=== PATIENT | male | born 1990 | race Hispanic/Latino ===

== ENCOUNTER 2017-01-24 14:07 | Inpatient (IN) | payer OTHER ==
--- NOTE | 2017-01-24 14:21 | Emergency Department Report ---
Chief Complaint: Extremity Injury, Upper Stated Complaint: RT HAND PAIN Time Seen by Provider: 01/24/17 14:10 - HPI History of Present Illness: PT c/o R hand pain, gradual onset last night. PT states he was laying in his bed when the pain started. PT denies injury or trauma. PT states he is extremely thirsty and after he drinks water, he vomits. When questioned specifically about IVDA, pt state he did inject heroin into his R hand 1-2 days ago. PT unsure on date. - ROS Review of Systems: + n/v - abd pain + r hand pain - Exam Physical Exam: PT anxious. R hand with localized erythema abd soft and not tender. MSE screening note: Focused history and physical exam performed. Due to findings the following was ordered: labs ED Disposition for MSE Condition: Stable
[2017-01-24 14:54] LABS: Basophils % (Auto) 0.8 % (0.0-1.8); Hematocrit 44.4 % (35.5-45.6); Hemoglobin 14.8 gm/dl (11.8-15.2); Mean Corpuscular HGB Conc 33 % (32-34); Mean Corpuscular Hemoglobin 28 pg (28-32); Mean Corpuscular Volume 83 fl (84-94); Platelet Count 223 K/mm3 (140-440); Red Blood Count 5.34 M/mm3 (3.65-5.03); Red Cell Distribution Width 13.3 % (13.2-15.2); White Blood Count 15.1 K/mm3 (4.5-11.0)
[2017-01-24 15:04] LABS: Albumin 4.5 g/dL (3.9-5); Albumin/Globulin Ratio 1.5 %; BUN/Creatinine Ratio 11.73; Calcium 9.4 mg/dL (8.4-10.2); Chloride 88.3 mmol/L (98-107); Potassium 4.7 mmol/L (3.6-5.0); Total Protein 7.5 g/dL (6.3-8.2)
--- NOTE | 2017-01-24 15:47 | XRay Report ---
Right hand 3 views: History: Pain. Findings: No bony or articular abnormality. No fracture or dislocation. No periosteal reaction. Impression: Essentially negative right hand.
[2017-01-24 18:48] LABS: Urine Drugs of Abuse Note Disclamer
[2017-01-24 18:58] LABS: Bilirubin,Urine NEG (Negative); Blood,Urine NEG (Negative); Ketones,Urine 20 mg/dL (Negative); Leukocyte Esterase,Urine SM (Negative); Mucus,Urine 3+ /HPF; Nitrite,Urine NEG (Negative); Urobilinogen,Urine < 2.0 mg/dL (<2.0)
[2017-01-25] MEDS ORDERED: NACL 0.9% 1000 ML 1,000 ML IV ONE (01:07)
[2017-01-25] MEDS ORDERED: VANCOMYCIN/NS 1 GM/250 ML 1 GM/250 ML BAG IV ONE (01:21)
--- NOTE | 2017-01-25 01:43 | Emergency Department Report ---
ED Upper Extremity Inj HPI - General Chief Complaint: Extremity Injury, Upper Stated Complaint: RT HAND PAIN Time Seen by Provider: 01/24/17 14:10 Source: patient Mode of arrival: Ambulatory Limitations: No Limitations - History of Present Illness Initial Comments: 26-year-old male with past medical history of polysubstance abuse presents to the hospital complains of right arm pain and swelling. No trauma reported. Patient admits to using IV heroin in this area prior to swelling and pain onset. Symptoms present for the past 2 days. Patient denies fever. He is right-hand dominant. Tetanus status is up-to-date. Pain is constant rated moderate to severe in intensity, worse palpation and movement. No alleviating factors. - Related Data Allergies Allergy/AdvReac Type Severity Reaction Status Date / Time No Known Allergies Allergy Verified 01/24/17 14:22 ED Review of Systems ROS: Stated complaint: RT HAND PAIN Other details as noted in HPI Comment: All other systems reviewed and negative Other: Constitutional: No fevers chills Eyes: No eye pain visual changes ENT: No ear pain or throat pain Neck: Denies pain Respiratory: Denies cough wheezing shortness of breath Cardiovascular: Denies chest pain, palpitations, syncope GI: Denies abdominal pain, nausea, vomiting, diarrhea : Denies dysuria, urinary frequency, or urgency Musculoskeletal: As per HPI Skin: As per HPI Neurologic: Denies headache, numbness, weakness Psychiatric: Denies suicidal ideation, hallucinations ED Past Medical Hx - Past Medical History Previous Medical History?: No - Surgical History Past Surgical History?: No - Social History Smoking Status: Current Every Day Smoker Substance Use Type: Heroin ED Physical Exam - General Limitations: No Limitations - Other Other exam information: General: No limitations, patient is alert in no acute distress Head exam: Atraumatic, normocephalic Eyes exam: Normal appearance ENT: Moist mucous membrane, normal oropharynx Neck exam: Normal inspection, full range of motion, no meningismus nontender Respiratory exam: Clear to auscultation bilateral, no wheezes, rales, crackles Cardiovascular: Normal rate and rhythm, normal heart sounds Abdomen: Soft, nondistended, and nontender, with normal bowel sounds, no rebound, or guarding Extremity: Full range of motion swelling to dorsum of right hands on the radial side mid hand extending upward to the distal forearm. Positive erythema, warmth , and tenderness Back: Normal Inspection, full range of motion, no tenderness Neurologic: Alert, oriented x3, cranial nerves intact, no motor or sensory deficit Psychiatric: normal affect, normal mood Skin: Warm, dry, intact ED Course Vital Signs 01/24/17 01/25/17 14:11 01:18 Temperature 98.8 F 99.3 F Pulse Rate 116 H 91 H Respiratory 20 18 Rate Blood Pressure 118/82 Blood Pressure 123/70 [Left] O2 Sat by Pulse 96 100 Oximetry - Reevaluation(s) Reevaluation #1: 01/25/17 01:47 Tachycardia improved prior to initiation of IV fluids. Patient treated with normal saline and vancomycin in the ED ED Medical Decision Making - Lab Data Result diagrams: 01/24/17 14:26 01/24/17 14:26 Lab Results 01/24/17 01/24/17 01/24/17 Range/Units 14:16 14:26 14:26 WBC 15.1 H (4.5-11.0) K/mm3 RBC 5.34 H (3.65-5.03) M/mm3 Hgb 14.8 (11.8-15.2) gm/dl Hct 44.4 (35.5-45.6) % MCV 83 L (84-94) fl MCH 28 (28-32) pg MCHC 33 (32-34) % RDW 13.3 (13.2-15.2) % Plt Count 223 (140-440) K/mm3 Lymph % (Auto) 28.6 (13.4-35.0) % [place] % (Auto) 9.5 H (0.0-7.3) % Eos % (Auto) 0.0 (0.0-4.3) % Baso % (Auto) 0.8 (0.0-1.8) % Lymph # 4.3 (1.2-5.4) K/mm3 [place] # 1.4 H (0.0-0.8) K/mm3 Eos # 0.0 (0.0-0.4) K/mm3 Baso # 0.1 (0.0-0.1) K/mm3 Seg Neutrophils % 61.1 (40.0-70.0) % Seg Neutrophils # 9.2 H (1.8-7.7) K/mm3 Sodium 130 L (137-145) mmol/L Potassium 4.7 (3.6-5.0) mmol/L Chloride 88.3 L (98-107) mmol/L Carbon Dioxide 22 (22-30) mmol/L Anion Gap 24 mmol/L BUN 27 H (9-20) mg/dL Creatinine 2.3 H (0.8-1.5) mg/dL Estimated GFR 35 ml/min BUN/Creatinine Ratio 11.73 % Glucose 76 (75-100) mg/dL POC Glucose 87 (70-105) Calcium 9.4 (8.4-10.2) mg/dL Total Bilirubin 1.00 (0.1-1.2) mg/dL AST 25 (5-40) units/L ALT 22 (7-56) units/L Alkaline Phosphatase 63 (35-129) units/L Total Creatine Kinase (55-170) units/L Total Protein 7.5 (6.3-8.2) g/dL Albumin 4.5 (3.9-5) g/dL Albumin/Globulin Ratio 1.5 % Lipase 56 (13-60) units/L Urine Color (Yellow) Urine Turbidity (Clear) Urine pH (5.0-7.0) Ur Specific [place] (1.003-1.030) Urine Protein (Negative) mg/dL Urine Glucose (UA) (Negative) mg/dL Urine Ketones (Negative) mg/dL Urine Blood (Negative) Urine Nitrite (Negative) Urine Bilirubin (Negative) Urine Urobilinogen (<2.0) mg/dL Ur Leukocyte Esterase (Negative) Urine WBC (Auto) (0.0-6.0) /HPF Urine RBC (Auto) (0.0-6.0) /HPF U Epithel Cells (Auto) (0-13.0) /HPF Hyaline Casts /LPF Urine Mucus /HPF Urine Opiates Screen Urine Methadone Screen Ur Barbiturates Screen Ur Phencyclidine Scrn Ur Amphetamines Screen U Benzodiazepines Scrn Urine Cocaine Screen U Marijuana (THC) Screen Drugs of Abuse Note 01/24/17 01/24/17 01/24/17 Range/Units 14:26 18:45 18:45 WBC (4.5-11.0) K/mm3 RBC (3.65-5.03) M/mm3 Hgb (11.8-15.2) gm/dl Hct (35.5-45.6) % MCV (84-94) fl MCH (28-32) pg MCHC (32-34) % RDW (13.2-15.2) % Plt Count (140-440) K/mm3 Lymph % (Auto) (13.4-35.0) % [place] % (Auto) (0.0-7.3) % Eos % (Auto) (0.0-4.3) % Baso % (Auto) (0.0-1.8) % Lymph # (1.2-5.4) K/mm3 [place] # (0.0-0.8) K/mm3 Eos # (0.0-0.4) K/mm3 Baso # (0.0-0.1) K/mm3 Seg Neutrophils % (40.0-70.0) % Seg Neutrophils # (1.8-7.7) K/mm3 Sodium (137-145) mmol/L Potassium (3.6-5.0) mmol/L Chloride (98-107) mmol/L Carbon Dioxide (22-30) mmol/L Anion Gap mmol/L BUN (9-20) mg/dL Creatinine (0.8-1.5) mg/dL Estimated GFR ml/min BUN/Creatinine Ratio % Glucose (75-100) mg/dL POC Glucose (70-105) Calcium (8.4-10.2) mg/dL Total Bilirubin (0.1-1.2) mg/dL AST (5-40) units/L ALT (7-56) units/L Alkaline Phosphatase (35-129) units/L Total Creatine Kinase 429 H (55-170) units/L Total Protein (6.3-8.2) g/dL Albumin (3.9-5) g/dL Albumin/Globulin Ratio % Lipase (13-60) units/L Urine Color [place] (Yellow) Urine Turbidity Slightly-cloudy (Clear) Urine pH 5.0 (5.0-7.0) Ur Specific [place] 1.025 (1.003-1.030) Urine Protein 100 mg/dl (Negative) mg/dL Urine Glucose (UA) Neg (Negative) mg/dL Urine Ketones 20 (Negative) mg/dL Urine Blood Neg (Negative) Urine Nitrite Neg (Negative) Urine Bilirubin Neg (Negative) Urine Urobilinogen < 2.0 (<2.0) mg/dL Ur Leukocyte Esterase Sm (Negative) Urine WBC (Auto) 8.0 H (0.0-6.0) /HPF Urine RBC (Auto) 5.0 (0.0-6.0) /HPF U Epithel Cells (Auto) 1.0 (0-13.0) /HPF Hyaline Casts 5 /LPF Urine Mucus 3+ /HPF Urine Opiates Screen Presumptive positive Urine Methadone Screen Presumptive negative Ur Barbiturates Screen Presumptive negative Ur Phencyclidine Scrn Presumptive negative Ur Amphetamines Screen Presumptive positive U Benzodiazepines Scrn Presumptive negative Urine Cocaine Screen Presumptive negative U Marijuana (THC) Screen Presumptive positive Drugs of Abuse Note Disclamer - Radiology Data Radiology results: report reviewed (r hand xray: unremarkable) - Medical Decision Making Patient admitted to the hospital for IV treatment/antibiotics. Patient also has renal sufficiency but no previous creatinine available for comparison. He denies a known history of renal insufficiency. - Differential Diagnosis cellulitis, abscess, osteomyelitis, fracture, contusion Critical Care Time: No Critical care attestation.: If time is entered above; I have spent that time in minutes in the direct care of this critically ill patient, excluding procedure time. ED Disposition Clinical Impression: Infection of right hand, IVDU (intravenous drug user), Heroin abuse, Amphetamine abuse, Marijuana abuse, Renal insufficiency, Hyponatremia Disposition: OP ADMIT IP TO THIS HOSP Is pt being admited?: Yes Condition: Stable Time of Disposition: 01:44 (Dr. eaton/hosp)
--- NOTE | 2017-01-25 02:04 | History and Physical Report ---
History of Present Illness Date of examination: 01/25/17 Date of admission: 01/25/17 Chief complaint: pain, redness,swelling right hand History of present illness: Aiyana 26-year-old presents with right hand pain swelling and redness for 2 days. Patient is a polysubstance abuser using injecting heroine using vitamins marijuana. He admits to injecting heroine 3 days ago. And soon after developed pain and redness and swelling of the right arm. This was becoming worse therefore came to the emergency department for further evaluation. In emergency department was diagnosed with cellulitis right arm. He has been started on IV antibiotics and will be admitted to telemetry medical surgical floor. Past History Past Medical History: other (substance abuse iv Heroin, amphetamine,marijuana) Past Surgical History: tonsillectomy Social history: single, lives with family, smoking (1 pack cigarettes a day), IV drug use (Heroin), full code, other (polysubstance abuse - Amphetamine, Marijuana) Medications and Allergies Allergies Allergy/AdvReac Type Severity Reaction Status Date / Time No Known Allergies Allergy Verified 01/24/17 14:22 Active Meds: Active Medications Sodium Chloride (Nacl 0.9% 1000 Ml) 1,000 mls @ 999 mls/hr IV BOLUS ONE Stop: 01/25/17 02:07 Last Admin: 01/25/17 01:20 Dose: 999 mls/hr Vancomycin HCl (Vancomycin/Ns 1 Gm/250 Ml) 1 gm in 250 mls @ 167.007 mls/hr IV ONCE ONE PRN Reason: Protocol Stop: 01/25/17 02:50 Last Admin: 01/25/17 01:45 Dose: 167.007 mls/hr Review of Systems All systems: negative (no fever, no chest pain, no headache, no abdominal pain, All other systems reviewed and are negative) Exam - Physical Exam Narrative exam: General appearance: In mild distress from pain, HEENT: normocephalic, atraumatic, Neck : supple, no JVD Lungs:clear to auscultation bilaterally, no crackles no wheezes Heart :S1 and S2 regular, no murmurs, no gallop Abdomen: soft, non-tender, non-distended, normal bowel sounds Extremities: Dorsum right hand, erythema, swollen, tender.no clubbing or cyanosis. Neuro : Awake, alert, oriented x 3, normal speech, no focal neurological signs - Constitutional Vitals: Temp Pulse Resp BP Pulse Ox 99.3 F 91 H 18 123/70 100 01/25/17 01:18 01/25/17 01:18 01/25/17 01:18 01/25/17 01:18 01/25/17 01:18 Results - Labs CBC & Chem 7: 01/24/17 14:26 01/24/17 14:26 Labs: Abnormal lab results 01/24/17 01/24/17 01/24/17 Range/Units 14:26 14:26 14:26 WBC 15.1 H (4.5-11.0) K/mm3 RBC 5.34 H (3.65-5.03) M/mm3 MCV 83 L (84-94) fl [place] % (Auto) 9.5 H (0.0-7.3) % [place] # 1.4 H (0.0-0.8) K/mm3 Seg Neutrophils # 9.2 H (1.8-7.7) K/mm3 Sodium 130 L (137-145) mmol/L Chloride 88.3 L (98-107) mmol/L BUN 27 H (9-20) mg/dL Creatinine 2.3 H (0.8-1.5) mg/dL Total Creatine Kinase 429 H (55-170) units/L Urine WBC (Auto) (0.0-6.0) /HPF 01/24/17 Range/Units 18:45 WBC (4.5-11.0) K/mm3 RBC (3.65-5.03) M/mm3 MCV (84-94) fl [place] % (Auto) (0.0-7.3) % [place] # (0.0-0.8) K/mm3 Seg Neutrophils # (1.8-7.7) K/mm3 Sodium (137-145) mmol/L Chloride (98-107) mmol/L BUN (9-20) mg/dL Creatinine (0.8-1.5) mg/dL Total Creatine Kinase (55-170) units/L Urine WBC (Auto) 8.0 H (0.0-6.0) /HPF Assessment and Plan Cellulitis right hand and distal forearm. This is secondary to illicit IV drug injection. Admit to medical surgical floor. Start vancomycin and Levaquin and Zosyn. We will consult orthopedic surgeon. He admits to injecting iv Heroin 3 days ago Leukocytosis. To Rule out sepsis. Start empiric 3 antibiotics and may de- escalate as clinical progress dictates. Blood cultures ordered. Acute kidney injury with creatinine of 2.3. He denies any previous history of renal failure. Start IV fluids and monitor daily BMP. Hyponatremia. Started on 0/9%NaCl. Repeat in am. DVT prophylaxis with Heparin subbcut. UTI. Levaquin Polysubstance abuse with Heroin, Amphetamine and marijuana. I discussed with him the importance of quitting. Consult case management. iv drug user Full CODE STATUS
[2017-01-25] MEDS ORDERED: ZOFRAN IV PRN (02:11)
[2017-01-25] MEDS ORDERED: DULCOLAX PR PRN (02:11)
[2017-01-25] MEDS ORDERED: TYLENOL PO PRN (02:11)
[2017-01-25] MEDS ORDERED: ZOSYN/NS 4.5GM/100ML 4.5 GM/100 ML VIAL IV SCH (02:18)
[2017-01-25] MEDS ORDERED: LEVAQUIN 750MG/150ML 750 MG/150 ML BAG IV ONE (03:00)
[2017-01-25] MEDS: MORPHINE IV PRN ×5 (03:21→23:08)
[2017-01-25] MEDS: NACL 0.9% 1000 ML 1,000 ML IV SCH ×2 (03:23→12:15)
[2017-01-25] MEDS: ZOSYN/NS 2.25 GM/50ML 2.25 GM/50 ML BAG IV SCH ×2 (06:00→12:14)
[2017-01-25] MEDS ORDERED: VANCOMYCIN PHARMACY TO DOSE IV SCH (06:00)
[2017-01-25] MEDS ORDERED: VANCOMYCIN 2,000 MG in NACL 0.9% 500 ML 500 ML IV ONE (08:00)
--- NOTE | 2017-01-25 08:33 | Admit Criteria Form ---
Admission Criteria Documentation: CELLULITIS Clinical Indications for Admission to Inpatient Care (Place 'X' for any and all applicable criteria): Admission is indicated for ANY ONE of the following(1)(2)(3)(4)(5): [ ]I. Limb-threatening infection [ ]II. High-risk comorbid condition as indicated by ANY ONE of the following: [ ]a) Uncontrolled diabetes (eg, HbA1c greater than 10% (0.1)) [ ]b) Cirrhosis [ ]c) Neutropenia [ ]d) Asplenia [ ]e) Immunosuppression [ ]f) Symptomatic heart failure [ ]III. Failure of outpatient therapy as indicated by ALL of the following: [ ]a) Progression or no improvement after adequate trial (minimum of 48 hours, with longer period for stable lower extremity infection) [ ]b) Adequate antibiotic regimen as indicated by use of ANY ONE of the following: [ ]i) First-generation cephalosporin (e.g., cephalexin) [ ]ii) Antistaphylococcal penicillin (e.g., dicloxacillin) [ ]iii) Penicillin-allergic patient regimen (clindamycin, extended-spectrum fluoroquinolone, or doxycycline) [ ]iv) Resistant organism (eg, methicillin-resistant Staphylococcus aureus) regimen (6) [ ]c) Outpatient intravenous therapy regimen is not appropriate due to ANY ONE of the following. (7)(8)(9)(10): [ ]i) It was tried and was not successful (eg, progression of infection). [ ]ii) It is not available or cannot be arranged in a clinically appropriate time frame (e.g., the next day). [ ]iii) Clinical presentation (eg, acuity of infection, rapidity of progression, confirmed or suspected bacteremia) is judged to require ALL of the following: [ ]1) Immediate initiation of intravenous therapy ( eg, cannot wait for next day) [ ]2) Intensity of patient monitoring and observation (eg, vital sign measurement, checks for infection progression) that cannot be provided at other than inpatient level of care [ ]IV. Mental status changes [ ]V. Bacteremia [ ]. Hemodynamic instability [ ]VII. Suspected necrotizing soft tissue infection (e.g., gas in tissue)(11)( 12) [ ]VIII. Orbital infection (13)(14) [ ]IX. Associated surgical procedure (e.g., abscess drainage, debridement) not amenable to outpatient, emergency department, or observation care [ ]X. Cutaneous gangrene [ ]XI. High fever (temperature greater than 39.5 degrees C (103.1 degrees F) (oral)) not responsive to outpatient, emergency department, or observation care therapy [X]XIII. Inpatient admission required rather than observation care (Also use Cellulitis: Observation Care as appropriate) because of ANY ONE of the following : [ ]a) Periorbital or perineal infection that is severe or worsening [X]b) Severe pain requiring acute inpatient management [ ]c) IV fluid to replace significant ongoing (e.g., for over 24 hours) losses (greater than 3L/m2 per day) [ ]d) Compartment syndrome monitoring (17) [ ]e) Strict or protective (eg, laminar flow) isolation [ ]f) Urgent debridement or skin grafting [ ]g) Bone or joint debridement [ ]h) Immediate inpatient surgery [X]i) Other condition, treatment or monitoring requiring inpatient admission Extended stay beyond goal length of stay may be needed for (1)(18): [ ]a) Necrotizing soft tissue infection or fasciitis [ ]b) Gram-negative infection [ ]c) Methicillin-resistant Staphylococcal aureus (MRSA) infection [ ]d) Peripheral venous insufficiency with cellulitis [ ]e) Extensive edema [ ]f) Sepsis or continued Hemodynamic instability [ ]g) Continued high fever or mental status change [ ]h) Bacteremia [ ]i) Active serious comorbid conditions ( eg, heart failure, renal insufficiency) The original [facility] content created by [employer] has been revised. The portions of the content which have been revised are identified through the use of italic text or in bold, and [facility] has neither reviewed nor approved the modified material. All other unmodified content is copyright [facility] [employer] Please see references footnoted in the original [facility] [employer] edition 2016 Admission Criteria Met: Yes
[2017-01-25] MEDS ORDERED: VANCOMYCIN 1,250 MG in NACL 0.9% 250ML 250 ML IV ONE (09:00)
--- NOTE | 2017-01-25 11:02 | Progress Note ---
Assessment and Plan Assessment and plan: Sepsis. Present on admission. Patient needs criteria given the tachycardia, leukocytosis and diagnosis of right upper extremity cellulitis. Start sepsis pathway. Check lactic acid levels. Continue current IV antibiotics. Cellulitis right hand and distal forearm. This is secondary to illicit IV drug injection. Continue vancomycin, Levaquin and Zosyn. We will consult orthopedic surgeon. He admits to injecting iv Heroin 3 days ago Acute kidney injury with creatinine of 2.3. Etiology likely secondary to vasomotor nephropathy/dehydration and sepsis. He denies any previous history of renal failure. Start IV fluids and monitor daily BMP. Hyponatremia. Started on 0/9%NaCl. Repeat in am. DVT prophylaxis with Heparin subbcut. UTI. Levaquin Polysubstance abuse with Heroin, Amphetamine and marijuana. I discussed with him the importance of quitting. Consult case management. iv drug user Full CODE STATUS History Interval history: Patient complains of right hand and forearm pain. Hospitalist Physical - Constitutional Vitals: Temp Pulse Resp BP Pulse Ox 99.5 F 92 H 18 132/67 100 01/25/17 08:00 01/25/17 08:00 01/25/17 08:00 01/25/17 08:00 01/25/17 08:00 General appearance: Present: no acute distress, well-nourished - EENT Eyes: Present: PERRL, EOM intact ENT: hearing intact, clear oral mucosa, dentition normal - Neck Neck: Present: supple, normal ROM - Respiratory Respiratory effort: normal Respiratory: bilateral: CTA - Cardiovascular Rhythm: regular Heart Sounds: Present: S1 & S2. Absent: gallop, rub - Extremities Extremities: no ischemia Extremity abnormal: edema (right hand), erythema - Abdominal General gastrointestinal: soft, non-tender, non-distended, normal bowel sounds - Integumentary Integumentary: Present: clear, warm, dry - Neurologic Neurologic: CNII-XII intact, moves all extremities Results - Labs CBC & Chem 7: 01/24/17 14:26 01/24/17 14:26 Labs: Laboratory Last Values WBC 15.1 K/mm3 (4.5-11.0) H 01/24/17 14:26 RBC 5.34 M/mm3 (3.65-5.03) H 01/24/17 14:26 Hgb 14.8 gm/dl (11.8-15.2) 01/24/17 14:26 Hct 44.4 % (35.5-45.6) 01/24/17 14: MCV 83 fl (84-94) L 01/24/17 14:26 MCH 28 pg (28-32) 01/24/17 14:26 MCHC 33 % (32-34) 01/24/17 14:26 RDW 13.3 % (13.2-15.2) 01/24/17 14:26 Plt Count 223 K/mm3 (140-440) 01/24/17 14:26 Lymph % (Auto) 28.6 % (13.4-35.0) 01/24/17 14:26 [place] % (Auto) 9.5 % (0.0-7.3) H 01/24/17 14:26 Eos % (Auto) 0.0 % (0.0-4.3) 01/24/17 14:26 Baso % (Auto) 0.8 % (0.0-1.8) 01/24/17 14:26 Lymph # 4.3 K/mm3 (1.2-5.4) 01/24/17 14:26 [place] # 1.4 K/mm3 (0.0-0.8) H 01/24/17 14:26 Eos # 0.0 K/mm3 (0.0-0.4) 01/24/17 14:26 Baso # 0.1 K/mm3 (0.0-0.1) 01/24/17 14:26 Seg Neutrophils % 61.1 % (40.0-70.0) 01/24/17 14:26 Seg Neutrophils # 9.2 K/mm3 (1.8-7.7) H 01/24/17 14:26 Sodium 130 mmol/L (137-145) L 01/24/17 14:26 Potassium 4.7 mmol/L (3.6-5.0) 01/24/17 14:26 Chloride 88.3 mmol/L (98-107) L 01/24/17 14:26 Carbon Dioxide 22 mmol/L (22-30) 01/24/17 14:26 Anion Gap 24 mmol/L 01/24/17 14:26 BUN 27 mg/dL (9-20) H 01/24/17 14:26 Creatinine 2.3 mg/dL (0.8-1.5) H 01/24/17 14:26 Estimated GFR 35 ml/min 01/24/17 14:26 BUN/Creatinine Ratio 11.73 % 01/24/17 14:26 Glucose 76 mg/dL (75-100) 01/24/17 14:26 POC Glucose 87 (70-105) 01/24/17 14:16 Calcium 9.4 mg/dL (8.4-10.2) 01/24/17 14:26 Total Bilirubin 1.00 mg/dL (0.1-1.2) 01/24/17 14:26 AST 25 units/L (5-40) 01/24/17 14:26 ALT 22 units/L (7-56) 01/24/17 14:26 Alkaline Phosphatase 63 units/L (35-129) 01/24/17 14:26 Total Creatine Kinase 429 units/L (55-170) H 01/24/17 14:26 Total Protein 7.5 g/dL (6.3-8.2) 01/24/17 14:26 Albumin 4.5 g/dL (3.9-5) 01/24/17 14:26 Albumin/Globulin Ratio 1.5 % 01/24/17 14:26 Lipase 56 units/L (13-60) 01/24/17 14:26 Urine Color [place] (Yellow) 01/24/17 18:45 Urine Turbidity Slightly-cloudy (Clear) 01/24/17 18:45 Urine pH 5.0 (5.0-7.0) 01/24/17 18:45 Ur Specific [place] 1.025 (1.003-1.030) 01/24/17 18:45 Urine Protein 100 mg/dl mg/dL (Negative) 01/24/17 18:45 Urine Glucose (UA) Neg mg/dL (Negative) 01/24/17 18:45 Urine Ketones 20 mg/dL (Negative) 01/24/17 18:45 Urine Blood Neg (Negative) 01/24/17 18:45 Urine Nitrite Neg (Negative) 01/24/17 18:45 Urine Bilirubin Neg (Negative) 01/24/17 18:45 Urine Urobilinogen < 2.0 mg/dL (<2.0) 01/24/17 18:45 Ur Leukocyte Esterase Sm (Negative) 01/24/17 18:45 Urine WBC (Auto) 8.0 /HPF (0.0-6.0) H 01/24/17 18:45 Urine RBC (Auto) 5.0 /HPF (0.0-6.0) 01/24/17 18:45 U Epithel Cells (Auto) 1.0 /HPF (0-13.0) 01/24/17 18:45 Hyaline Casts 5 /LPF 01/24/17 18:45 Urine Mucus 3+ /HPF 01/24/17 18:45 Urine Opiates Screen Presumptive positive 01/24/17 18:45 Urine Methadone Screen Presumptive negative 01/24/17 18:45 Ur Barbiturates Screen Presumptive negative 01/24/17 18:45 Ur Phencyclidine Scrn Presumptive negative 01/24/17 18:45 Ur Amphetamines Screen Presumptive positive 01/24/17 18:45 U Benzodiazepines Scrn Presumptive negative 01/24/17 18:45 Urine Cocaine Screen Presumptive negative 01/24/17 18:45 U Marijuana (THC) Screen Presumptive positive 01/24/17 18:45 Drugs of Abuse Note Disclamer 01/24/17 18:45
[2017-01-25 13:59] LABS: Anion Gap 16 mmol/L; BUN/Creatinine Ratio 17.77; Blood Urea Nitrogen 16 mg/dL (9-20); Calcium 7.9 mg/dL (8.4-10.2); Carbon Dioxide 22 mmol/L (22-30); Chloride 96.3 mmol/L (98-107); Glucose 111 mg/dL (75-100); Potassium 3.7 mmol/L (3.6-5.0); Sodium 131 mmol/L (137-145)
--- NOTE | 2017-01-25 15:17 | Consultation ---
History of Present Illness - HPI Consult date: 01/25/17 Consult reason: joint pain History of present illness: 26-year-old presents with right hand pain swelling and redness for 2 days. Patient is a polysubstance abuser using injecting heroine using vitamins marijuana. He admits to injecting heroine 3 days ago. And soon after developed pain and redness and swelling of the right arm. This was becoming worse therefore came to the emergency department for further evaluation. In emergency department was diagnosed with cellulitis right arm. He has been started on IV antibiotics and will be admitted to telemetry medical surgical floor. Asked to evaluate patient's right hand for possible abscess formation Past History Past Medical History: other (substance abuse iv Heroin, amphetamine,marijuana) Past Surgical History: tonsillectomy Social history: single, lives with family, smoking (1 pack cigarettes a day), IV drug use (Heroin), full code, other (polysubstance abuse - Amphetamine, Marijuana) Medications and Allergies Allergies Allergy/AdvReac Type Severity Reaction Status Date / Time No Known Allergies Allergy Verified 01/24/17 14:22 Active Meds: Active Medications Acetaminophen (Tylenol) 650 mg PO Q4H PRN PRN Reason: Pain MILD(1-3)/Fever >100.5/LEOS Bisacodyl (Dulcolax) 10 mg TX QDAY PRN PRN Reason: Constipation unrelieved by MOM Sodium Chloride (Nacl 0.9% 1000 Ml) 1,000 mls @ 125 mls/hr IV DIRECT AMELIE Last Admin: 01/25/17 12:15 Dose: 125 mls/hr Levofloxacin/Dextrose (Levaquin 500mg/100ml) 500 mg in 100 mls @ 100 mls/hr IV Q24HR AMELIE Vancomycin HCl 1,250 mg/ (Sodium Chloride) 275 mls @ 166.667 mls/hr IV Q8HR AMELIE Piperacillin Sod/Tazobactam Sod (Zosyn/Ns 4.5gm/100ml) 4.5 gm in 100 mls @ 200 mls/hr IV Q8HR AMELIE Morphine Sulfate (Morphine) 2 mg IV Q4H PRN PRN Reason: Pain, Moderate (4-6) Last Admin: 01/25/17 12:14 Dose: 2 mg Ondansetron HCl (Zofran) 4 mg IV Q6H PRN PRN Reason: Nausea And Vomiting Vancomycin HCl (Vancomycin Pharmacy To Dose) 1 each IV PKCONSULT AMELIE PRN Reason: Protocol Physical Examination - Physical exam Narrative exam: On physical examination the right hand and the patient was noted to have moderate swelling with redness was tender to palpation there were no fluctuance or drainage noted from the right upper extremity Assessment and Plan Assessment - cellulitis right hand and forearm Recommendation - continue IV antibiotics and observation
[2017-01-25 16:56] LABS: Hematocrit 38.4 % (35.5-45.6); Mean Corpuscular HGB Conc 34 % (32-34); Mean Corpuscular Hemoglobin 28 pg (28-32); Mean Corpuscular Volume 84 fl (84-94); Platelet Count 180 K/mm3 (140-440); Red Cell Distribution Width 13.6 % (13.2-15.2); White Blood Count 6.3 K/mm3 (4.5-11.0)
[2017-01-25 17:11] LABS: Anion Gap 19 mmol/L; Blood Urea Nitrogen 14 mg/dL (9-20); Calcium 8.2 mg/dL (8.4-10.2); Carbon Dioxide 19 mmol/L (22-30); Chloride 94.6 mmol/L (98-107); Glucose 91 mg/dL (75-100); Potassium 3.8 mmol/L (3.6-5.0); Sodium 129 mmol/L (137-145)
[2017-01-25] MEDS: VANCOMYCIN 1,250 MG in NACL 0.9% 250ML 250 ML IV SCH (21:34)
[2017-01-25] MEDS: ZOSYN/NS 4.5GM/100ML 4.5 GM/100 ML VIAL IV SCH (23:08)
[2017-01-26] MEDS: VANCOMYCIN 1,250 MG in NACL 0.9% 250ML 250 ML IV SCH ×3 (05:21→21:44)
[2017-01-26] MEDS: ZOSYN/NS 4.5GM/100ML 4.5 GM/100 ML VIAL IV SCH ×3 (05:22→21:44)
[2017-01-26] MEDS ORDERED: VANCOMYCIN 1,500 MG in NACL 0.9% 500 ML 500 ML IV SCH (06:00)
[2017-01-26 07:57] LABS: Hematocrit 38.9 % (35.5-45.6); Hemoglobin 13.1 gm/dl (11.8-15.2); Mean Corpuscular HGB Conc 34 % (32-34); Mean Corpuscular Hemoglobin 28 pg (28-32); Mean Corpuscular Volume 84 fl (84-94); Platelet Count 169 K/mm3 (140-440); Red Blood Count 4.65 M/mm3 (3.65-5.03); Red Cell Distribution Width 13.4 % (13.2-15.2); White Blood Count 5.9 K/mm3 (4.5-11.0)
[2017-01-26] MEDS: MORPHINE IV PRN ×4 (08:32→21:45)
[2017-01-26 09:48] LABS: Basophils % (Manual) 0 % (0.0-1.8); Blastocytes % (Manual) 0 %; RBC Morphology Normal
[2017-01-26 09:49] LABS: Diff Status Complete
[2017-01-26] MEDS ORDERED: LEVAQUIN 500MG/100ML 500 MG/100 ML BAG IV SCH (10:00)
--- NOTE | 2017-01-26 10:02 | Progress Note ---
Assessment and Plan Assessment and plan: Sepsis. Continued follow-up lactic acid levels and blood cultures. Continue IV antibiotics. Cellulitis right hand and distal forearm. This is secondary to illicit IV drug injection. Continue vancomycin, Levaquin and Zosyn. We will consult orthopedic surgeon. He admits to injecting iv Heroin 3 days ago. Check echocardiogram given his history of IV drug abuse. Acute kidney injury with creatinine of 2.3. Resolved. Etiology likely secondary to vasomotor nephropathy/dehydration and sepsis. He denies any previous history of renal failure. Continue IV fluids and monitor daily BMP. Hyponatremia. Started on 0/9%NaCl. Repeat in am. DVT prophylaxis with Heparin subcutaneous. UTI. Levaquin Polysubstance abuse with Heroin, Amphetamine and marijuana. I discussed with him the importance of quitting. Consult case management. iv drug user Full CODE STATUS History Interval history: Patient complains of right hand and forearm pain. Patient seen in echo lab Hospitalist Physical - Constitutional Vitals: Temp Pulse Resp BP Pulse Ox 99.9 F H 89 20 112/62 100 01/25/17 21:49 01/25/17 21:49 01/26/17 08:32 01/25/17 21:49 01/25/17 08:00 General appearance: Present: no acute distress, well-nourished - EENT Eyes: Present: PERRL, EOM intact ENT: hearing intact, clear oral mucosa, dentition normal - Neck Neck: Present: supple, normal ROM - Respiratory Respiratory effort: normal Respiratory: bilateral: CTA - Cardiovascular Rhythm: regular Heart Sounds: Present: S1 & S2. Absent: gallop, rub - Extremities Extremities: no ischemia, No edema, Full ROM Extremity abnormal: edema, erythema (RUE--), tenderness (RUE--forearm and dorsum of hand) - Abdominal General gastrointestinal: soft, non-tender, non-distended, normal bowel sounds - Integumentary Integumentary: Present: clear, warm, dry - Neurologic Neurologic: CNII-XII intact, moves all extremities Results - Labs CBC & Chem 7: 01/26/17 06:53 01/25/17 16:31 Labs: Laboratory Last Values WBC 5.9 K/mm3 (4.5-11.0) 01/26/17 06:53 RBC 4.65 M/mm3 (3.65-5.03) 01/26/17 06:53 Hgb 13.1 gm/dl (11.8-15.2) 01/26/17 06:53 Hct 38.9 % (35.5-45.6) 01/26/17 06:53 MCV 84 fl (84-94) 01/26/17 06:53 MCH 28 pg (28-32) 01/26/17 06:53 MCHC 34 % (32-34) 01/26/17 06:53 RDW 13.4 % (13.2-15.2) 01/26/17 06:53 Plt Count 169 K/mm3 (140-440) 01/26/17 06:53 Lymph % (Auto) 28.6 % (13.4-35.0) 01/24/17 14:26 [place] % (Auto) 9.5 % (0.0-7.3) H 01/24/17 14:26 Eos % (Auto) 0.0 % (0.0-4.3) 01/24/17 14:26 Baso % (Auto) 0.8 % (0.0-1.8) 01/24/17 14:26 Lymph # 4.3 K/mm3 (1.2-5.4) 01/24/17 14:26 [place] # 1.4 K/mm3 (0.0-0.8) H 01/24/17 14:26 Eos # 0.0 K/mm3 (0.0-0.4) 01/24/17 14:26 Baso # 0.1 K/mm3 (0.0-0.1) 01/24/17 14:26 Add Manual Diff Complete 01/26/17 06:53 Total Counted 100 01/26/17 06:53 Seg Neutrophils % 61.1 % (40.0-70.0) 01/24/17 14:26 Seg Neuts % (Manual) 56.0 % (40.0-70.0) 01/26/17 06:53 Band Neutrophils % 2.0 % 01/26/17 06:53 Lymphocytes % (Manual) 22.0 % (13.4-35.0) 01/26/17 06:53 Reactive Lymphs % (Man) 4.0 % 01/26/17 06:53 Monocytes % (Manual) 15.0 % (0.0-7.3) H 01/26/17 06:53 Eosinophils % (Manual) 1.0 % (0.0-4.3) 01/26/17 06:53 Basophils % (Manual) 0 % (0.0-1.8) 01/26/17 06:53 Metamyelocytes % 0 % 01/26/17 06:53 Myelocytes % 0 % 01/26/17 06:53 Promyelocytes % 0 % 01/26/17 06:53 Blast Cells % 0 % 01/26/17 06:53 Nucleated RBC % Not Reportable 01/26/17 06:53 Seg Neutrophils # 9.2 K/mm3 (1.8-7.7) H 01/24/17 14:26 Seg Neutrophils # Man 3.3 K/mm3 (1.8-7.7) 01/26/17 06:53 Band Neutrophils # 0.1 K/mm3 01/26/17 06:53 Lymphocytes # (Manual) 1.3 K/mm3 (1.2-5.4) 01/26/17 06:53 Abs React Lymphs (Man) 0.2 K/mm3 01/26/17 06:53 Monocytes # (Manual) 0.9 K/mm3 (0.0-0.8) H 01/26/17 06:53 Eosinophils # (Manual) 0.1 K/mm3 (0.0-0.4) 01/26/17 06:53 Basophils # (Manual) 0.0 K/mm3 (0.0-0.1) 01/26/17 06:53 Metamyelocytes # 0.0 K/mm3 01/26/17 06:53 Myelocytes # 0.0 K/mm3 01/26/17 06:53 Promyelocytes # 0.0 K/mm3 01/26/17 06:53 Blast Cells # 0.0 K/mm3 01/26/17 06:53 WBC Morphology Not Reportable 01/26/17 06:53 Hypersegmented Neuts Not Reportable 01/26/17 06:53 Hyposegmented Neuts Not Reportable 01/26/17 06:53 Hypogranular Neuts Not Reportable 01/26/17 06:53 Smudge Cells Not Reportable 01/26/17 06:53 Toxic Granulation Not Reportable 01/26/17 06:53 Toxic Vacuolation Not Reportable 01/26/17 06:53 Dohle Bodies Not Reportable 01/26/17 06:53 Pelger-Huet Anomaly Not Reportable 01/26/17 06:53 Isra Rods Not Reportable 01/26/17 06:53 Platelet Estimate Appears normal 01/26/17 06:53 Clumped Platelets Not Reportable 01/26/17 06:53 Plt Clumps, EDTA Not Reportable 01/26/17 06:53 Large Platelets Not Reportable 01/26/17 06:53 Giant Platelets Not Reportable 01/26/17 06:53 Platelet Satelliting Not Reportable 01/26/17 06:53 Plt Morphology Comment Not Reportable 01/26/17 06:53 RBC Morphology Normal 01/26/17 06:53 Dimorphic RBCs Not Reportable 01/26/17 06:53 Polychromasia Not Reportable 01/26/17 06:53 Hypochromasia Not Reportable 01/26/17 06:53 Poikilocytosis Not Reportable 01/26/17 06:53 Anisocytosis Not Reportable 01/26/17 06:53 Microcytosis Not Reportable 01/26/17 06:53 Macrocytosis Not Reportable 01/26/17 06:53 Spherocytes Not Reportable 01/26/17 06:53 Pappenheimer Bodies Not Reportable 01/26/17 06:53 Sickle Cells Not Reportable 01/26/17 06:53 Target Cells Not Reportable 01/26/17 06:53 Tear Drop Cells Not Reportable 01/26/17 06:53 Ovalocytes Not Reportable 01/26/17 06:53 Helmet Cells Not Reportable 01/26/17 06:53 [place] Bodies Not Reportable 01/26/17 06:53 [place] Rings Not Reportable 01/26/17 06:53 [place] Cells Not Reportable 01/26/17 06:53 Bite Cells Not Reportable 01/26/17 06:53 Crenated Cell Not Reportable 01/26/17 06:53 Elliptocytes Not Reportable 01/26/17 06:53 Acanthocytes (Spur) Not Reportable 01/26/17 06:53 Rouleaux Not Reportable 01/26/17 06:53 Hemoglobin C Crystals Not Reportable 01/26/17 06:53 Schistocytes Not Reportable 01/26/17 06:53 Malaria parasites Not Reportable 01/26/17 06:53 [place] Bodies Not Reportable 01/26/17 06:53 Hem Pathologist Commnt No 01/26/17 06:53 Sodium 129 mmol/L (137-145) L 01/25/17 16:31 Potassium 3.8 mmol/L (3.6-5.0) 01/25/17 16:31 Chloride 94.6 mmol/L (98-107) L 01/25/17 16:31 Carbon Dioxide 19 mmol/L (22-30) L 01/25/17 16:31 Anion Gap 19 mmol/L 01/25/17 16:31 BUN 14 mg/dL (9-20) 01/25/17 16:31 Creatinine 0.7 mg/dL (0.8-1.5) L 01/25/17 16:31 Estimated GFR > 60 ml/min 01/25/17 16:31 BUN/Creatinine Ratio 20.00 % 01/25/17 16:31 Glucose 91 mg/dL (75-100) 01/25/17 16:31 POC Glucose 87 (70-105) 01/24/17 14:16 Lactic Acid 0.80 mmol/L (0.7-2.0) 01/25/17 16:31 Calcium 8.2 mg/dL (8.4-10.2) L 01/25/17 16:31 Total Bilirubin 1.00 mg/dL (0.1-1.2) 01/24/17 14:26 AST 25 units/L (5-40) 01/24/17 14:26 ALT 22 units/L (7-56) 01/24/17 14:26 Alkaline Phosphatase 63 units/L (35-129) 01/24/17 14:26 Total Creatine Kinase 429 units/L (55-170) H 01/24/17 14:26 Total Protein 7.5 g/dL (6.3-8.2) 01/24/17 14:26 Albumin 4.5 g/dL (3.9-5) 01/24/17 14:26 Albumin/Globulin Ratio 1.5 % 01/24/17 14:26 Lipase 56 units/L (13-60) 01/24/17 14:26 Urine Color Liseth (Yellow) 01/24/17 18:45 Urine Turbidity Slightly-cloudy (Clear) 01/24/17 18:45 Urine pH 5.0 (5.0-7.0) 01/24/17 18:45 Ur Specific [place] 1.025 (1.003-1.030) 01/24/17 18:45 Urine Protein 100 mg/dl mg/dL (Negative) 01/24/17 18:45 Urine Glucose (UA) Neg mg/dL (Negative) 01/24/17 18:45 Urine Ketones 20 mg/dL (Negative) 01/24/17 18:45 Urine Blood Neg (Negative) 01/24/17 18:45 Urine Nitrite Neg (Negative) 01/24/17 18:45 Urine Bilirubin Neg (Negative) 01/24/17 18:45 Urine Urobilinogen < 2.0 mg/dL (<2.0) 01/24/17 18:45 Ur Leukocyte Esterase Sm (Negative) 01/24/17 18:45 Urine WBC (Auto) 8.0 /HPF (0.0-6.0) H 01/24/17 18:45 Urine RBC (Auto) 5.0 /HPF (0.0-6.0) 01/24/17 18:45 U Epithel Cells (Auto) 1.0 /HPF (0-13.0) 01/24/17 18:45 Hyaline Casts 5 /LPF 01/24/17 18:45 Urine Mucus 3+ /HPF 01/24/17 18:45 Urine Opiates Screen Presumptive positive 01/24/17 18:45 Urine Methadone Screen Presumptive negative 01/24/17 18:45 Ur Barbiturates Screen Presumptive negative 01/24/17 18:45 Ur Phencyclidine Scrn Presumptive negative 01/24/17 18:45 Ur Amphetamines Screen Presumptive positive 01/24/17 18:45 U Benzodiazepines Scrn Presumptive negative 01/24/17 18:45 Urine Cocaine Screen Presumptive negative 01/24/17 18:45 U Marijuana (THC) Screen Presumptive positive 01/24/17 18:45 Drugs of Abuse Note Disclamer 01/24/17 18:45
[2017-01-26] MEDS: LEVAQUIN 500MG/100ML 500 MG/100 ML BAG IV SCH (13:05)
[2017-01-26] MEDS: NACL 0.9% 1000 ML 1,000 ML IV SCH (19:33)
[2017-01-27] MEDS: MORPHINE IV PRN ×4 (04:43→19:04)
[2017-01-27] MEDS: NACL 0.9% 1000 ML 1,000 ML IV SCH (04:43)
[2017-01-27] MEDS: ZOSYN/NS 4.5GM/100ML 4.5 GM/100 ML VIAL IV SCH ×3 (05:44→22:23)
[2017-01-27 06:51] LABS: Hematocrit 40.7 % (35.5-45.6); Hemoglobin 13.6 gm/dl (11.8-15.2); Mean Corpuscular HGB Conc 34 % (32-34); Mean Corpuscular Hemoglobin 28 pg (28-32); Mean Corpuscular Volume 84 fl (84-94); Platelet Count 162 K/mm3 (140-440); Red Blood Count 4.82 M/mm3 (3.65-5.03); Red Cell Distribution Width 13.4 % (13.2-15.2); White Blood Count 5.3 K/mm3 (4.5-11.0)
[2017-01-27 07:12] LABS: Anion Gap 18 mmol/L; BUN/Creatinine Ratio 7.14; Blood Urea Nitrogen 5 mg/dL (9-20); Calcium 7.7 mg/dL (8.4-10.2); Carbon Dioxide 21 mmol/L (22-30); Chloride 102.1 mmol/L (98-107); Glucose 83 mg/dL (75-100); Potassium 3.7 mmol/L (3.6-5.0); Sodium 137 mmol/L (137-145)
[2017-01-27] MEDS: VANCOMYCIN 1,250 MG in NACL 0.9% 250ML 250 ML IV SCH ×2 (07:24→19:03)
[2017-01-27 08:13] LABS: Blastocytes % (Manual) 0 %
[2017-01-27 08:17] LABS: Basophils % (Manual) 0 % (0.0-1.8)
[2017-01-27 08:18] LABS: Diff Status Complete; RBC Morphology Normal
--- NOTE | 2017-01-27 10:54 | Progress Note ---
Assessment and Plan Assessment and plan: Sepsis. Continued follow-up lactic acid levels and blood cultures. Continue IV antibiotics. Cellulitis right hand and distal forearm. This is secondary to illicit IV drug injection. Continue vancomycin, Levaquin and Zosyn. Orthopedic surgeon following. He admits to injecting iv Heroin prior to admission. Echocardiogram reported as normal. Acute kidney injury with creatinine of 2.3. Resolved. Etiology likely secondary to vasomotor nephropathy/dehydration and sepsis. He denies any previous history of renal failure. Continue IV fluids and monitor daily BMP. Hyponatremia. Started on 0/9%NaCl. Repeat in am. DVT prophylaxis with Heparin subcutaneous. UTI. Levaquin Polysubstance abuse with Heroin, Amphetamine and marijuana. I discussed with him the importance of quitting. Consult case management. iv drug user Full CODE STATUS History Interval history: Patient complains of right hand and forearm pain. However, patient reports pain is improved. Hospitalist Physical - Constitutional Vitals: Temp Pulse Resp BP Pulse Ox 98.5 F 59 L 18 122/72 99 01/27/17 08:54 01/27/17 08:54 01/27/17 08:54 01/27/17 08:54 01/27/17 08:54 General appearance: Present: no acute distress, well-nourished - EENT Eyes: Present: PERRL, EOM intact ENT: hearing intact, clear oral mucosa, dentition normal - Neck Neck: Present: supple, normal ROM - Respiratory Respiratory effort: normal Respiratory: bilateral: CTA - Cardiovascular Rhythm: regular Heart Sounds: Present: S1 & S2. Absent: gallop, rub - Extremities Extremities: no ischemia, Full ROM Extremity abnormal: edema, erythema, tenderness (Right forearm and hand) - Abdominal General gastrointestinal: soft, non-tender, non-distended, normal bowel sounds - Integumentary Integumentary: Present: clear, warm, dry - Neurologic Neurologic: CNII-XII intact, moves all extremities Results - Labs CBC & Chem 7: 01/27/17 06:29 01/27/17 06:29 Labs: Laboratory Last Values WBC 5.3 K/mm3 (4.5-11.0) 01/27/17 06:29 RBC 4.82 M/mm3 (3.65-5.03) 01/27/17 06:29 Hgb 13.6 gm/dl (11.8-15.2) 01/27/17 06:29 Hct 40.7 % (35.5-45.6) 01/27/17 06:29 MCV 84 fl (84-94) 01/27/17 06:29 MCH 28 pg (28-32) 01/27/17 06:29 MCHC 34 % (32-34) 01/27/17 06:29 RDW 13.4 % (13.2-15.2) 01/27/17 06:29 Plt Count 162 K/mm3 (140-440) 01/27/17 06:29 Lymph % (Auto) Rehabilitation Attendant 01/27/17 06:29 [place] % (Auto) 9.5 % (0.0-7.3) H 01/24/17 14:26 Eos % (Auto) 0.0 % (0.0-4.3) 01/24/17 14:26 Baso % (Auto) 0.8 % (0.0-1.8) 01/24/17 14:26 Lymph # 4.3 K/mm3 (1.2-5.4) 01/24/17 14:26 [place] # 1.4 K/mm3 (0.0-0.8) H 01/24/17 14:26 Eos # 0.0 K/mm3 (0.0-0.4) 01/24/17 14:26 Baso # 0.1 K/mm3 (0.0-0.1) 01/24/17 14:26 Add Manual Diff Complete 01/27/17 06:29 Total Counted 100 01/27/17 06:29 Seg Neutrophils % Rehabilitation Attendant 01/27/17 06:29 Seg Neuts % (Manual) 29.0 % (40.0-70.0) L 01/27/17 06:29 Band Neutrophils % 6.0 % 01/27/17 06:29 Lymphocytes % (Manual) 41.0 % (13.4-35.0) H 01/27/17 06:29 Reactive Lymphs % (Man) 11.0 % 01/27/17 06:29 Monocytes % (Manual) 12.0 % (0.0-7.3) H 01/27/17 06:29 Eosinophils % (Manual) 1.0 % (0.0-4.3) 01/27/17 06:29 Basophils % (Manual) 0 % (0.0-1.8) 01/27/17 06:29 Metamyelocytes % 0 % 01/27/17 06:29 Myelocytes % 0 % 01/27/17 06:29 Promyelocytes % 0 % 01/27/17 06:29 Blast Cells % 0 % 01/27/17 06:29 Nucleated RBC % Not Reportable 01/27/17 06:29 Seg Neutrophils # 9.2 K/mm3 (1.8-7.7) H 01/24/17 14:26 Seg Neutrophils # Man 1.5 K/mm3 (1.8-7.7) L 01/27/17 06:29 Band Neutrophils # 0.3 K/mm3 01/27/17 06:29 Lymphocytes # (Manual) 2.2 K/mm3 (1.2-5.4) 01/27/17 06:29 Abs React Lymphs (Man) 0.6 K/mm3 01/27/17 06:29 Monocytes # (Manual) 0.6 K/mm3 (0.0-0.8) 01/27/17 06:29 Eosinophils # (Manual) 0.1 K/mm3 (0.0-0.4) 01/27/17 06:29 Basophils # (Manual) 0.0 K/mm3 (0.0-0.1) 01/27/17 06:29 Metamyelocytes # 0.0 K/mm3 01/27/17 06:29 Myelocytes # 0.0 K/mm3 01/27/17 06:29 Promyelocytes # 0.0 K/mm3 01/27/17 06:29 Blast Cells # 0.0 K/mm3 01/27/17 06:29 WBC Morphology Not Reportable 01/27/17 06:29 Hypersegmented Neuts Not Reportable 01/27/17 06:29 Hyposegmented Neuts Not Reportable 01/27/17 06:29 Hypogranular Neuts Not Reportable 01/27/17 06:29 Smudge Cells Not Reportable 01/27/17 06:29 Toxic Granulation Not Reportable 01/27/17 06:29 Toxic Vacuolation Not Reportable 01/27/17 06:29 Dohle Bodies Not Reportable 01/27/17 06:29 Pelger-Huet Anomaly Not Reportable 01/27/17 06:29 Isra Rods Not Reportable 01/27/17 06:29 Platelet Estimate Not Reportable 01/27/17 06:29 Clumped Platelets Not Reportable 01/27/17 06:29 Plt Clumps, EDTA Not Reportable 01/27/17 06:29 Large Platelets Not Reportable 01/27/17 06:29 Giant Platelets Not Reportable 01/27/17 06:29 Platelet Satelliting Not Reportable 01/27/17 06:29 Plt Morphology Comment Not Reportable 01/27/17 06:29 RBC Morphology Normal 01/27/17 06:29 Dimorphic RBCs Not Reportable 01/27/17 06:29 Polychromasia Not Reportable 01/27/17 06:29 Hypochromasia Not Reportable 01/27/17 06:29 Poikilocytosis Not Reportable 01/27/17 06:29 Anisocytosis Not Reportable 01/27/17 06:29 Microcytosis Not Reportable 01/27/17 06:29 Macrocytosis Not Reportable 01/27/17 06:29 Spherocytes Not Reportable 01/27/17 06:29 Pappenheimer Bodies Not Reportable 01/27/17 06:29 Sickle Cells Not Reportable 01/27/17 06:29 Target Cells Not Reportable 01/27/17 06:29 Tear Drop Cells Not Reportable 01/27/17 06:29 Ovalocytes Not Reportable 01/27/17 06:29 Helmet Cells Not Reportable 01/27/17 06:29 [place] Bodies Not Reportable 01/27/17 06:29 [place] Rings Not Reportable 01/27/17 06:29 [place] Cells Not Reportable 01/27/17 06:29 Bite Cells Not Reportable 01/27/17 06:29 Crenated Cell Not Reportable 01/27/17 06:29 Elliptocytes Not Reportable 01/27/17 06:29 Acanthocytes (Spur) Not Reportable 01/27/17 06:29 Rouleaux Not Reportable 01/27/17 06:29 Hemoglobin C Crystals Not Reportable 01/27/17 06:29 Schistocytes Not Reportable 01/27/17 06:29 Malaria parasites Not Reportable 01/27/17 06:29 [place] Bodies Not Reportable 01/27/17 06:29 Hem Pathologist Commnt Sent to pathology 01/27/17 06:29 Sodium 137 mmol/L (137-145) D 01/27/17 06:29 Potassium 3.7 mmol/L (3.6-5.0) 01/27/17 06:29 Chloride 102.1 mmol/L (98-107) 01/27/17 06:29 Carbon Dioxide 21 mmol/L (22-30) L 01/27/17 06:29 Anion Gap 18 mmol/L 01/27/17 06:29 BUN 5 mg/dL (9-20) L 01/27/17 06:29 Creatinine 0.7 mg/dL (0.8-1.5) L 01/27/17 06:29 Estimated GFR > 60 ml/min 01/27/17 06:29 BUN/Creatinine Ratio 7.14 % 01/27/17 06:29 Glucose 83 mg/dL (75-100) 01/27/17 06:29 POC Glucose 87 (70-105) 01/24/17 14:16 Lactic Acid 0.80 mmol/L (0.7-2.0) 01/25/17 16:31 Calcium 7.7 mg/dL (8.4-10.2) L 01/27/17 06:29 Total Bilirubin 1.00 mg/dL (0.1-1.2) 01/24/17 14:26 AST 25 units/L (5-40) 01/24/17 14:26 ALT 22 units/L (7-56) 01/24/17 14:26 Alkaline Phosphatase 63 units/L (35-129) 01/24/17 14:26 Total Creatine Kinase 429 units/L (55-170) H 01/24/17 14:26 Total Protein 7.5 g/dL (6.3-8.2) 01/24/17 14:26 Albumin 4.5 g/dL (3.9-5) 01/24/17 14:26 Albumin/Globulin Ratio 1.5 % 01/24/17 14:26 Lipase 56 units/L (13-60) 01/24/17 14:26 Urine Color [place] (Yellow) 01/24/17 18:45 Urine Turbidity Slightly-cloudy (Clear) 01/24/17 18:45 Urine pH 5.0 (5.0-7.0) 01/24/17 18:45 Ur Specific [place] 1.025 (1.003-1.030) 01/24/17 18:45 Urine Protein 100 mg/dl mg/dL (Negative) 01/24/17 18:45 Urine Glucose (UA) Neg mg/dL (Negative) 01/24/17 18:45 Urine Ketones 20 mg/dL (Negative) 01/24/17 18:45 Urine Blood Neg (Negative) 01/24/17 18:45 Urine Nitrite Neg (Negative) 01/24/17 18:45 Urine Bilirubin Neg (Negative) 01/24/17 18:45 Urine Urobilinogen < 2.0 mg/dL (<2.0) 01/24/17 18:45 Ur Leukocyte Esterase Sm (Negative) 01/24/17 18:45 Urine WBC (Auto) 8.0 /HPF (0.0-6.0) H 01/24/17 18:45 Urine RBC (Auto) 5.0 /HPF (0.0-6.0) 01/24/17 18:45 U Epithel Cells (Auto) 1.0 /HPF (0-13.0) 01/24/17 18:45 Hyaline Casts 5 /LPF 01/24/17 18:45 Urine Mucus 3+ /HPF 01/24/17 18:45 Vancomycin Trough 9.0 ug/mL (5.0-20.0) 01/27/17 06:29 Urine Opiates Screen Presumptive positive 01/24/17 18:45 Urine Methadone Screen Presumptive negative 01/24/17 18:45 Ur Barbiturates Screen Presumptive negative 01/24/17 18:45 Ur Phencyclidine Scrn Presumptive negative 01/24/17 18:45 Ur Amphetamines Screen Presumptive positive 01/24/17 18:45 U Benzodiazepines Scrn Presumptive negative 01/24/17 18:45 Urine Cocaine Screen Presumptive negative 01/24/17 18:45 U Marijuana (THC) Screen Presumptive positive 01/24/17 18:45 Drugs of Abuse Note Disclamer 01/24/17 18:45
[2017-01-27] MEDS: LEVAQUIN 500MG/100ML 500 MG/100 ML BAG IV SCH (11:05)
--- NOTE | 2017-01-27 11:27 | Progress Note ---
Assessment and Plan Assessment - cellulitis right hand and forearm Recommendation - continue IV antibiotics and observation Subjective Date of service: 01/27/17 Interval history: Less pain today than before, according to his parents who were in the room he has been doing well and his fever has subsided Objective Vital signs: Vital Signs - 12hr 01/27/17 01/27/17 01/27/17 00:00 00:54 04:43 Temperature 100.6 F H Pulse Rate 78 Respiratory 18 18 16 Rate Blood Pressure 122/69 [Left] O2 Sat by Pulse 99 Oximetry 01/27/17 08:54 Temperature 98.5 F Pulse Rate 59 L Respiratory 18 Rate Blood Pressure 122/72 [Left] O2 Sat by Pulse 99 Oximetry Narrative Exam: The right hand was examined. Noted to have much less swelling and redness to the dorsal surface - Labs CBC & BMP: 01/27/17 06:29 01/27/17 06:29 Labs: Abnormal lab results 01/27/17 01/27/17 Range/Units 06:29 06:29 Seg Neuts % (Manual) 29.0 L (40.0-70.0) % Lymphocytes % (Manual) 41.0 H (13.4-35.0) % Monocytes % (Manual) 12.0 H (0.0-7.3) % Seg Neutrophils # Man 1.5 L (1.8-7.7) K/mm3 Carbon Dioxide 21 L (22-30) mmol/L BUN 5 L (9-20) mg/dL Creatinine 0.7 L (0.8-1.5) mg/dL Calcium 7.7 L (8.4-10.2) mg/dL
[2017-01-27] MEDS: VANCOMYCIN 2,000 MG in NACL 0.9% 500 ML 500 ML IV SCH (22:23)
[2017-01-28] MEDS: MORPHINE IV PRN ×4 (00:36→22:31)
[2017-01-28 06:03] LABS: Anion Gap 17 mmol/L; BUN/Creatinine Ratio 8.75; Blood Urea Nitrogen 7 mg/dL (9-20); Calcium 7.9 mg/dL (8.4-10.2); Carbon Dioxide 22 mmol/L (22-30); Chloride 102.3 mmol/L (98-107); Glucose 85 mg/dL (75-100); Potassium 3.9 mmol/L (3.6-5.0); Sodium 137 mmol/L (137-145)
[2017-01-28] MEDS: ZOSYN/NS 4.5GM/100ML 4.5 GM/100 ML VIAL IV SCH ×3 (06:07→22:32)
[2017-01-28] MEDS: VANCOMYCIN 2,000 MG in NACL 0.9% 500 ML 500 ML IV SCH ×3 (06:07→23:49)
--- NOTE | 2017-01-28 09:11 | Progress Note ---
Assessment and Plan Assessment and plan: Sepsis. Resolving. Blood cultures are negative. Continue IV antibiotics. Cellulitis right hand and distal forearm. This is secondary to illicit IV drug injection. Continue vancomycin, Zosyn. We will de-escalate antibiotics and discontinue Levaquin. Orthopedic surgeon following. He admits to injecting iv Heroin prior to admission. Echocardiogram reported as normal. Acute kidney injury with creatinine of 2.3. Resolved. Etiology likely secondary to vasomotor nephropathy/dehydration and sepsis. He denies any previous history of renal failure. Continue IV fluids and monitor daily BMP. Hyponatremia. Started on 0/9%NaCl. Repeat in am. DVT prophylaxis with Heparin subcutaneous. UTI. Levaquin Polysubstance abuse with Heroin, Amphetamine and marijuana. I discussed with him the importance of quitting. Consult case management. iv drug user Disposition. Anticipate discharge in a.m. Full CODE STATUS History Interval history: Patient complains of right hand and forearm pain. However, patient reports pain is improved. Hospitalist Physical - Constitutional Vitals: Temp Pulse Resp BP Pulse Ox 98 F 70 16 144/80 16 L 01/28/17 08:00 01/28/17 08:00 01/28/17 08:00 01/28/17 08:00 01/28/17 08:00 General appearance: Present: no acute distress, well-nourished - EENT Eyes: Present: PERRL, EOM intact ENT: hearing intact, clear oral mucosa, dentition normal - Neck Neck: Present: supple, normal ROM - Respiratory Respiratory effort: normal Respiratory: bilateral: CTA - Cardiovascular Rhythm: regular Heart Sounds: Present: S1 & S2. Absent: gallop, rub - Extremities Extremities: no ischemia, Full ROM Extremity abnormal: edema, erythema, tenderness, other (right dorsal hand with tenderness, erythema and edema.) - Abdominal General gastrointestinal: soft, non-tender, non-distended, normal bowel sounds - Integumentary Integumentary: Present: clear, warm, dry - Neurologic Neurologic: CNII-XII intact, moves all extremities Results - Labs CBC & Chem 7: 01/27/17 06:29 01/28/17 05:29 Labs: Laboratory Last Values WBC 5.3 K/mm3 (4.5-11.0) 01/27/17 06:29 RBC 4.82 M/mm3 (3.65-5.03) 01/27/17 06:29 Hgb 13.6 gm/dl (11.8-15.2) 01/27/17 06:29 Hct 40.7 % (35.5-45.6) 01/27/17 06:29 MCV 84 fl (84-94) 01/27/17 06:29 MCH 28 pg (28-32) 01/27/17 06:29 MCHC 34 % (32-34) 01/27/17 06:29 RDW 13.4 % (13.2-15.2) 01/27/17 06:29 Plt Count 162 K/mm3 (140-440) 01/27/17 06:29 Lymph % (Auto) Acid Pump Operator 01/27/17 06:29 [place] % (Auto) 9.5 % (0.0-7.3) H 01/24/17 14:26 Eos % (Auto) 0.0 % (0.0-4.3) 01/24/17 14:26 Baso % (Auto) 0.8 % (0.0-1.8) 01/24/17 14:26 Lymph # 4.3 K/mm3 (1.2-5.4) 01/24/17 14:26 [place] # 1.4 K/mm3 (0.0-0.8) H 01/24/17 14:26 Eos # 0.0 K/mm3 (0.0-0.4) 01/24/17 14:26 Baso # 0.1 K/mm3 (0.0-0.1) 01/24/17 14:26 Add Manual Diff Complete 01/27/17 06:29 Total Counted 100 01/27/17 06:29 Seg Neutrophils % Acid Pump Operator 01/27/17 06:29 Seg Neuts % (Manual) 29.0 % (40.0-70.0) L 01/27/17 06:29 Band Neutrophils % 6.0 % 01/27/17 06:29 Lymphocytes % (Manual) 41.0 % (13.4-35.0) H 01/27/17 06:29 Reactive Lymphs % (Man) 11.0 % 01/27/17 06:29 Monocytes % (Manual) 12.0 % (0.0-7.3) H 01/27/17 06:29 Eosinophils % (Manual) 1.0 % (0.0-4.3) 01/27/17 06:29 Basophils % (Manual) 0 % (0.0-1.8) 01/27/17 06:29 Metamyelocytes % 0 % 01/27/17 06:29 Myelocytes % 0 % 01/27/17 06:29 Promyelocytes % 0 % 01/27/17 06:29 Blast Cells % 0 % 01/27/17 06:29 Nucleated RBC % Not Reportable 01/27/17 06:29 Seg Neutrophils # 9.2 K/mm3 (1.8-7.7) H 01/24/17 14:26 Seg Neutrophils # Man 1.5 K/mm3 (1.8-7.7) L 01/27/17 06:29 Band Neutrophils # 0.3 K/mm3 01/27/17 06:29 Lymphocytes # (Manual) 2.2 K/mm3 (1.2-5.4) 01/27/17 06:29 Abs React Lymphs (Man) 0.6 K/mm3 01/27/17 06:29 Monocytes # (Manual) 0.6 K/mm3 (0.0-0.8) 01/27/17 06:29 Eosinophils # (Manual) 0.1 K/mm3 (0.0-0.4) 01/27/17 06:29 Basophils # (Manual) 0.0 K/mm3 (0.0-0.1) 01/27/17 06:29 Metamyelocytes # 0.0 K/mm3 01/27/17 06:29 Myelocytes # 0.0 K/mm3 01/27/17 06:29 Promyelocytes # 0.0 K/mm3 01/27/17 06:29 Blast Cells # 0.0 K/mm3 01/27/17 06:29 Pathologist Review 01/27/17 06:29 WBC Morphology Not Reportable 01/27/17 06:29 Hypersegmented Neuts Not Reportable 01/27/17 06:29 Hyposegmented Neuts Not Reportable 01/27/17 06:29 Hypogranular Neuts Not Reportable 01/27/17 06:29 Smudge Cells Not Reportable 01/27/17 06:29 Toxic Granulation Not Reportable 01/27/17 06:29 Toxic Vacuolation Not Reportable 01/27/17 06:29 Dohle Bodies Not Reportable 01/27/17 06:29 Pelger-Huet Anomaly Not Reportable 01/27/17 06:29 Isra Rods Not Reportable 01/27/17 06:29 Platelet Estimate Not Reportable 01/27/17 06:29 Clumped Platelets Not Reportable 01/27/17 06:29 Plt Clumps, EDTA Not Reportable 01/27/17 06:29 Large Platelets Not Reportable 01/27/17 06:29 Giant Platelets Not Reportable 01/27/17 06:29 Platelet Satelliting Not Reportable 01/27/17 06:29 Plt Morphology Comment Not Reportable 01/27/17 06:29 RBC Morphology Normal 01/27/17 06:29 Dimorphic RBCs Not Reportable 01/27/17 06:29 Polychromasia Not Reportable 01/27/17 06:29 Hypochromasia Not Reportable 01/27/17 06:29 Poikilocytosis Not Reportable 01/27/17 06:29 Anisocytosis Not Reportable 01/27/17 06:29 Microcytosis Not Reportable 01/27/17 06:29 Macrocytosis Not Reportable 01/27/17 06:29 Spherocytes Not Reportable 01/27/17 06:29 Pappenheimer Bodies Not Reportable 01/27/17 06:29 Sickle Cells Not Reportable 01/27/17 06:29 Target Cells Not Reportable 01/27/17 06:29 Tear Drop Cells Not Reportable 01/27/17 06:29 Ovalocytes Not Reportable 01/27/17 06:29 Helmet Cells Not Reportable 01/27/17 06:29 Danielson-Calvin Bodies Not Reportable 01/27/17 06:29 [place] Rings Not Reportable 01/27/17 06:29 [place] Cells Not Reportable 01/27/17 06:29 Bite Cells Not Reportable 01/27/17 06:29 Crenated Cell Not Reportable 01/27/17 06:29 Elliptocytes Not Reportable 01/27/17 06:29 Acanthocytes (Spur) Not Reportable 01/27/17 06:29 Rouleaux Not Reportable 01/27/17 06:29 Hemoglobin C Crystals Not Reportable 01/27/17 06:29 Schistocytes Not Reportable 01/27/17 06:29 Malaria parasites Not Reportable 01/27/17 06:29 [place] Bodies Not Reportable 01/27/17 06:29 Hem Pathologist Commnt Sent to pathology 01/27/17 06:29 Sodium 137 mmol/L (137-145) D 01/27/17 06:29 Potassium 3.7 mmol/L (3.6-5.0) 01/27/17 06:29 Chloride 102.1 mmol/L (98-107) 01/27/17 06:29 Carbon Dioxide 22 mmol/L (22-30) 01/28/17 05:29 Anion Gap 18 mmol/L 01/27/17 06:29 BUN 7 mg/dL (9-20) L 01/28/17 05:29 Creatinine 0.8 mg/dL (0.8-1.5) 01/28/17 05:29 Estimated GFR > 60 ml/min 01/28/17 05:29 BUN/Creatinine Ratio 8.75 % 01/28/17 05:29 Glucose 85 mg/dL (75-100) 01/28/17 05:29 POC Glucose 87 (70-105) 01/24/17 14:16 Lactic Acid 0.80 mmol/L (0.7-2.0) 01/25/17 16:31 Calcium 7.9 mg/dL (8.4-10.2) L 01/28/17 05:29 Total Bilirubin 1.00 mg/dL (0.1-1.2) 01/24/17 14:26 AST 25 units/L (5-40) 01/24/17 14:26 ALT 22 units/L (7-56) 01/24/17 14:26 Alkaline Phosphatase 63 units/L (35-129) 01/24/17 14:26 Total Creatine Kinase 429 units/L (55-170) H 01/24/17 14:26 Total Protein 7.5 g/dL (6.3-8.2) 01/24/17 14:26 Albumin 4.5 g/dL (3.9-5) 01/24/17 14:26 Albumin/Globulin Ratio 1.5 % 01/24/17 14:26 Lipase 56 units/L (13-60) 01/24/17 14:26 Urine Color [place] (Yellow) 01/24/17 18:45 Urine Turbidity Slightly-cloudy (Clear) 01/24/17 18:45 Urine pH 5.0 (5.0-7.0) 01/24/17 18:45 Ur Specific [place] 1.025 (1.003-1.030) 01/24/17 18:45 Urine Protein 100 mg/dl mg/dL (Negative) 01/24/17 18:45 Urine Glucose (UA) Neg mg/dL (Negative) 01/24/17 18:45 Urine Ketones 20 mg/dL (Negative) 01/24/17 18:45 Urine Blood Neg (Negative) 01/24/17 18:45 Urine Nitrite Neg (Negative) 01/24/17 18:45 Urine Bilirubin Neg (Negative) 01/24/17 18:45 Urine Urobilinogen < 2.0 mg/dL (<2.0) 01/24/17 18:45 Ur Leukocyte Esterase Sm (Negative) 01/24/17 18:45 Urine WBC (Auto) 8.0 /HPF (0.0-6.0) H 01/24/17 18:45 Urine RBC (Auto) 5.0 /HPF (0.0-6.0) 01/24/17 18:45 U Epithel Cells (Auto) 1.0 /HPF (0-13.0) 01/24/17 18:45 Hyaline Casts 5 /LPF 01/24/17 18:45 Urine Mucus 3+ /HPF 01/24/17 18:45 Vancomycin Trough 9.0 ug/mL (5.0-20.0) 01/27/17 06:29 Urine Opiates Screen Presumptive positive 01/24/17 18:45 Urine Methadone Screen Presumptive negative 01/24/17 18:45 Ur Barbiturates Screen Presumptive negative 01/24/17 18:45 Ur Phencyclidine Scrn Presumptive negative 01/24/17 18:45 Ur Amphetamines Screen Presumptive positive 01/24/17 18:45 U Benzodiazepines Scrn Presumptive negative 01/24/17 18:45 Urine Cocaine Screen Presumptive negative 01/24/17 18:45 U Marijuana (THC) Screen Presumptive positive 01/24/17 18:45 Drugs of Abuse Note Disclamer 01/24/17 18:45
[2017-01-28] MEDS: LEVAQUIN 500MG/100ML 500 MG/100 ML BAG IV SCH (11:15)
[2017-01-28] MEDS: NACL 0.9% 1000 ML 1,000 ML IV SCH (14:49)
[2017-01-29] MEDS: ZOSYN/NS 4.5GM/100ML 4.5 GM/100 ML VIAL IV SCH ×2 (05:27→14:41)
[2017-01-29] MEDS: NACL 0.9% 1000 ML 1,000 ML IV SCH ×2 (05:29→14:42)
[2017-01-29] MEDS: MORPHINE IV PRN ×3 (05:29→14:39)
[2017-01-29] MEDS: VANCOMYCIN 2,000 MG in NACL 0.9% 500 ML 500 ML IV SCH (06:31)
[2017-01-29] MEDS: LEVAQUIN 500MG/100ML 500 MG/100 ML BAG IV SCH (10:00)
[2017-01-29 11:50] LABS: Anion Gap 17 mmol/L; Blood Urea Nitrogen 5 mg/dL (9-20); Carbon Dioxide 23 mmol/L (22-30); Chloride 104.5 mmol/L (98-107); Glucose 95 mg/dL (75-100); Potassium 3.8 mmol/L (3.6-5.0); Sodium 141 mmol/L (137-145)
[2017-01-29 12:03] LABS: Hematocrit 39.5 % (35.5-45.6); Hemoglobin 13.2 gm/dl (11.8-15.2); Mean Corpuscular HGB Conc 34 % (32-34); Mean Corpuscular Hemoglobin 28 pg (28-32); Mean Corpuscular Volume 84 fl (84-94); Platelet Count 171 K/mm3 (140-440); Red Cell Distribution Width 13.3 % (13.2-15.2); White Blood Count 6.6 K/mm3 (4.5-11.0)
[2017-01-29 16:28] LABS: Basophils % (Manual) 0 % (0.0-1.8)
[2017-01-29 16:34] LABS: Diff Status Complete; Ovalocytes Few; Platelet Estimate Consistent w Auto
[2017-01-29 16:53] VITALS: BP 128/82
--- NOTE | 2017-01-29 18:42 | Progress Note ---
Subjective Date of service: 01/29/17 Objective - Constitutional Vitals: Vital Signs - 12hr 01/29/17 01/29/17 08:00 16:52 Temperature 98.7 F 98.1 F Pulse Rate [ 64 56 L Left Radial] Respiratory 16 18 Rate Blood Pressure 122/64 128/82 [Left Radial Artery] O2 Sat by Pulse 98 98 Oximetry General appearance: Present: no acute distress, well-nourished - EENT Eyes: PERRL, EOM intact ENT: hearing intact, clear oral mucosa Ears: bilateral: normal - Neck Neck: supple, normal ROM - Respiratory Respiratory effort: normal Respiratory: bilateral: CTA - Breasts Breasts: normal - Cardiovascular Rhythm: regular Heart Sounds: Present: S1 & S2. Absent: gallop, rub Extremities: pulses intact, No edema, normal color, Full ROM - Gastrointestinal General gastrointestinal: Present: soft, non-tender, non-distended, normal bowel sounds - Genitourinary Male genitourinary: normal - Integumentary Integumentary: clear, warm, dry - Musculoskeletal Musculoskeletal: 1, strength equal bilaterally - Neurologic Neurologic: moves all extremities - Psychiatric Psychiatric: memory intact, appropriate mood/affect, intact judgment & insight - Labs CBC & Chem 7: 01/29/17 11:07 01/29/17 11:07 Labs: Abnormal lab results 01/29/17 01/29/17 Range/Units 11:07 11:07 Seg Neuts % (Manual) 10.0 L (40.0-70.0) % Lymphocytes % (Manual) 70.0 H (13.4-35.0) % Seg Neutrophils # Man 0.7 L (1.8-7.7) K/mm3 BUN 5 L (9-20) mg/dL Calcium 8.0 L (8.4-10.2) mg/dL
--- NOTE | 2017-01-29 19:06 | Discharge Summary ---
Providers - Providers Date of Admission: 01/25/17 02:11 Date of discharge: 01/29/17 Attending physician: LILIAN BARRIOS 01/25/17 07:00 Consult to Physician [CONS] Routine Consulting Provider: MEENU GABRIEL Reason For Exam: Cellulitis right hand Place consult to:: dr. agbriel Notified:: cell Phone number called:: [phone] Was contact made?: No Time called:: 08:14 Comment:: left message Primary care physician: [employer]ER Hospitalization Condition: Good Procedures: 20 minutes Hospital course: See Discharge summary in reports Disposition: DC-01 TO HOME OR SELFCARE Core Measure Documentation - Palliative Care Palliative Care/ Comfort Measures: Not Applicable - Core Measures Any of the following diagnoses?: none Exam - Constitutional Vitals: Temp Pulse Resp BP Pulse Ox 98.1 F 56 L 18 128/82 98 01/29/17 16:52 01/29/17 16:52 01/29/17 16:52 01/29/17 16:52 01/29/17 16:52 General appearance: Present: no acute distress, well-nourished - EENT Eyes: Present: PERRL ENT: hearing intact, clear oral mucosa - Neck Neck: Present: supple, normal ROM - Respiratory Respiratory effort: normal Respiratory: bilateral: CTA - Cardiovascular Heart Sounds: Present: S1 & S2. Absent: rub, click - Extremities Extremities: pulses symmetrical, No edema Peripheral Pulses: within normal limits - Abdominal General gastrointestinal: Present: soft, non-tender, non-distended, normal bowel sounds Male genitourinary: Present: normal - Integumentary Integumentary: Present: clear, warm, dry - Musculoskeletal Musculoskeletal: gait normal, strength equal bilaterally - Psychiatric Psychiatric: appropriate mood/affect, intact judgment & insight - Neurologic Neurologic: CNII-XII intact, moves all extremities Plan Activity: no restrictions Diet: regular Follow up with: PRIMARY CARE, [Primary Care Provider] - 3-5 Days
[2017-01-30] MEDS ORDERED: VANCOMYCIN 2,000 MG in NACL 0.9% 500 ML 500 ML IV SCH (07:00)
== END 2017-01-29 20:10 | disposition home or self-care (01) | DRG 871 ==
LOC: ED 14:07 → 3A 01-25 02:11
PROVIDERS: ADMIT Internal Medicine; ATTEND Hospitalist
DX: A41.9 Sepsis, unspecified organism (principal); N17.0 Acute kidney failure with tubular necrosis; L03.113 Cellulitis of right upper limb; E87.1 Hypo-osmolality and hyponatremia; N39.0 Urinary tract infection, site not specified; E86.0 Dehydration; F17.210 Nicotine dependence, cigarettes, uncomplicated; F15.10 Other stimulant abuse, uncomplicated; F12.10 Cannabis abuse, uncomplicated; F19.10 Other psychoactive substance abuse, uncomplicated; Z90.89 Acquired absence of other organs
CPT/HCPCS: 36415; 80048; 80053; 80202; 80307; 81001; 82140; 82550; 82962; 83690; 85007; 85025; 85027; 87040; 93306; 96365; 99406; J1956; J2270; J2543; J3370; J7030; J7040; J7050